=== PATIENT | female | born 1990 | race Caucasian/White ===

== ENCOUNTER 2016-04-29 13:50 | Emergency (ER) | payer OTHER ==
[2016-04-29 14:25] VITALS: BP 116/68
--- NOTE | 2016-04-29 14:25 | UC ---
General HPI - HPI Summary HPI Summary: Patient was injured at work 1 week ago. Is here today for F/u to return to work , dx at time of injury was neck strain. - History of Current Complaint Chief Complaint: UCHeadInjury Stated Complaint: NECK/SHOULDER COMPLAINT (WC) Time Seen by Provider: 04/29/16 13:58 Hx Obtained From: Patient Onset/Duration: Sudden Onset, Lasting Days Timing: Constant Onset Severity: Severe Current Severity: None Pain Intensity: 0 - Allergy/Home Medications Allergies/Adverse Reactions: Allergies Allergy/AdvReac Type Severity Reaction Status Date / Time Hydromorphone [From Dilaudid] Allergy Severe facial Verified 04/29/16 14:08 swelling Amoxicillin [From Augmentin] Allergy Rash Verified 04/29/16 14:13 Clavulanic Acid Allergy Rash Verified 04/29/16 14:13 [From Augmentin] PMH/Surg Hx/FS Hx/Imm Hx Previously Healthy: Yes Endocrine History Of: Denies: Diabetes, Thyroid Disease, Hyperthyroidism, Hypothyroidism, Dyslipidemia Cardiovascular History Of: Denies: Cardiac Disorders, Hypertension, Pacemaker/ICD, Myocardial Infarction , Congestive Heart Failure, Atrial Fibrillation, Deep Vein Thrombosis, Bleeding Disorders Respiratory History Of: Denies: COPD, Asthma, Bronchitis, Pneumonia, Pulmonary Embolism GI/ History Of: Denies: Gastroesophageal Reflux, Ulcer, Gastrointestinal Bleed, Gall Bladder Disease, Kidney Stones, Diverticulitis, Renal Disease, Urosepsis Neurological History Of: Denies: TIA, CVA, Dementia, Seizures, Migraine Psychological History Of: Reports: Anxiety - No medications Denies: Depression, Bipolar Disorder, Schizophrenia, Post Traumatic Stress Disorder Cancer History Of: Denies: Lung Cancer, Colorectal Cancer, Breast Cancer, Prostate Cancer, Cervical Cancer Other History Of: Anticoagulant Therapy Negative For: HIV, Hepatitis B, Hepatitis C - Surgical History Surgical History: Yes Surgery Procedure, Year, and Place: tonsillectomy - Family History Known Family History: Negative: Cardiac Disease, Hypertension - Social History Alcohol Use: Occasionally Substance Use Type: None Smoking Status (MU): Never Smoked Tobacco Review of Systems Constitutional: Negative Skin: Negative Eyes: Negative ENT: Negative Respiratory: Negative Cardiovascular: Negative Gastrointestinal: Negative Genitourinary: Negative Motor: Negative Neurovascular: Negative Musculoskeletal: Myalgia Neurological: Negative Psychological: Negative All Other Systems Reviewed And Are Negative: Yes Physical Exam Triage Information Reviewed: Yes Appearance: Well-Appearing, No Pain Distress, Well-Nourished Vital Signs: Initial Vital Signs Temp 99.2 F 04/29/16 13:57 Pulse 92 04/29/16 13:57 Resp 14 04/29/16 13:57 BP 116/68 04/29/16 13:57 Pulse Ox 97 04/29/16 13:57 Vital Signs Reviewed: Yes Eye Exam: Normal Eyes: Positive: Conjunctiva Clear ENT Exam: Normal ENT: Positive: Normal ENT inspection, Hearing grossly normal, Pharynx normal, TMs normal Dental Exam: Normal Neck exam: Normal Neck: Positive: Supple, Nontender, No Lymphadenopathy Respiratory Exam: Normal Respiratory: Positive: Chest non-tender, Lungs clear, Normal breath sounds Cardiovascular Exam: Normal Cardiovascular: Positive: RRR, No Murmur, Pulses Normal Abdominal Exam: Normal Abdomen Description: Positive: Nontender, No Organomegaly, Soft Bowel Sounds: Positive: Present Musculoskeletal Exam: Normal Musculoskeletal: Positive: Strength Intact, ROM Intact, No Edema, Other: - palpable tendernessover right scalenes Neurological Exam: Normal Neurological: Positive: Alert, Muscle Tone Normal Psychological Exam: Normal Skin Exam: Normal Course/Dx - Course Course Of Treatment: hx obtained exam performed, cleared to return to work next week. - Differential Dx - Multi-Symptom Provider Diagnoses: muscle strain follow up Discharge - Discharge Plan Condition: Stable Disposition: HOME Patient Education Materials: Muscle Strain (ED) Additional Instructions: you are free to return to work without restrictions on 05/04/16.
== END 2016-04-29 14:37 | disposition home or self-care (01) ==
LOC: UCCORT 13:50
DX: S16.1XXD Strain of muscle, fascia and tendon at neck level, subsequent encounter (principal); X58.XXXD Exposure to other specified factors, subsequent encounter; Z88.1 Allergy status to other antibiotic agents; Z88.5 Allergy status to narcotic agent
CPT/HCPCS: 99211; G0463

== ENCOUNTER 2016-12-06 07:01 | Emergency (ER) | payer BC ==
[2016-12-06 07:21] VITALS: BP 121/87
--- NOTE | 2016-12-06 07:21 | UC ---
Eye Complaint HPI - HPI Summary HPI Summary: right eye burning and itching x 1 days + swelling, clear discharge, no change in vision , no fb sensation no cold sx. - History of Current Complaint Chief Complaint: UCEye Stated Complaint: RIGHT EYE COMPLAINT Time Seen by Provider: 12/06/16 07:12 Hx Obtained From: Patient Hx Last Menstrual Period: 11/08/16 ?: No Onset/Duration: Gradual Onset, Lasting Days - 1, Still Present Timing: Constant Severity Initially: Moderate Severity Currently: Moderate Location of Injury: Conjunctiva Aggravating Factor(s): Nothing Alleviating Factor(s): Nothing Associated Signs And Symptoms: Positive: Drainage (Clear), Swelling. Negative: Photophobia, Drainage (Purulent), Vision Impairment Bilateral, Vision Impairment Right, Vision Impairment Left, Fever - Allergies/Home Medications Allergies/Adverse Reactions: Allergies Allergy/AdvReac Type Severity Reaction Status Date / Time Hydromorphone [From Dilaudid] Allergy Severe facial Verified 12/06/16 07:11 swelling Amoxicillin [From Augmentin] Allergy Rash Verified 12/06/16 07:11 Clavulanic Acid Allergy Rash Verified 12/06/16 07:11 [From Augmentin] Home Medications: Home Medications Nuvaring 1 unit VAGINAL SEE INSTRUCTIONS 12/06/16 [History Confirmed 12/06/16] busPIRone TAB* [Buspar TAB*] 10 mg PO BID 12/06/16 [History Confirmed 12/06/16] PMH/Surg Hx/FS Hx/Imm Hx Previously Healthy: Yes Other History Of: Anticoagulant Therapy Negative For: HIV, Hepatitis B, Hepatitis C - Surgical History Surgical History: Yes Surgery Procedure, Year, and Place: tonsillectomy - Family History Known Family History: Negative: Cardiac Disease, Hypertension - Social History Alcohol Use: Occasionally Substance Use Type: None Smoking Status (MU): Never Smoked Tobacco Review of Systems Constitutional: Negative Skin: Negative Eyes: Eye Redness ENT: Negative Respiratory: Negative Cardiovascular: Negative Gastrointestinal: Negative Is Patient Immunocompromised?: No All Other Systems Reviewed And Are Negative: Yes Physical Exam Triage Information Reviewed: Yes Appearance: Well-Appearing, No Pain Distress, Well-Nourished Vital Signs: Initial Vital Signs Temp 98.5 F 12/06/16 07:06 Pulse 89 12/06/16 07:06 Resp 20 12/06/16 07:06 BP 121/87 12/06/16 07:06 Vital Signs Reviewed: Yes Eye Exam: Normal Eyes: Positive: Conjunctiva Inflamed, Discharge - clear discharge ENT: Positive: Normal ENT inspection, Hearing grossly normal, Pharynx normal. Negative: Nasal congestion, Nasal drainage Neck: Positive: Supple, Nontender, No Lymphadenopathy Respiratory: Positive: Chest non-tender, Lungs clear, Normal breath sounds Cardiovascular: Positive: RRR, No Murmur, Pulses Normal Eye Complaint Course/Dx - Differential Dx/Diagnosis Provider Diagnoses: allergic conjunctivitis Discharge - Discharge Plan Condition: Stable Disposition: HOME Prescriptions: Tobramycin/Dexameth OPTH.SUSP* [Tobradex 0.3-0.1%*] 1 drop BOTH EYES Q4H #1 btl Patient Education Materials: Conjunctivitis (ED) Referrals: Cristina Copeland MD [Primary Care Provider] - If Needed Additional Instructions: allergic conjunctivitis cool compresses, use the steroid eye drops follow up if having eye pain, photophobia , change in vision
== END 2016-12-06 07:29 | disposition home or self-care (01) ==
LOC: UCCORT 07:01
DX: H10.11 Acute atopic conjunctivitis, right eye (principal); Z88.5 Allergy status to narcotic agent; Z88.1 Allergy status to other antibiotic agents
CPT/HCPCS: 99212; G0463

== ENCOUNTER 2017-05-15 07:04 | Emergency (ER) | payer BC ==
[2017-05-15 07:21] VITALS: BP 127/68
--- NOTE | 2017-05-15 07:38 | ED ---
Throat Pain/Nasal Congestion - HPI Summary HPI Summary: 26 yr old with right ear ache for couple of weeks on and off. Sinus pressure, post nasal drip, sore throat and cough. She denies SOB. No fever. She called into work today and needs a work note. - History of Current Complaint Chief Complaint: UCRespiratory Time Seen by Provider: 05/15/17 07:27 - Allergies/Home Medications Allergies/Adverse Reactions: Allergies Allergy/AdvReac Type Severity Reaction Status Date / Time amoxicillin [From Augmentin] Allergy Rash Verified 05/15/17 07:13 clavulanic acid Allergy Rash Verified 05/15/17 07:13 [From Augmentin] hydromorphone [From Dilaudid] Allergy facial Verified 05/15/17 07:14 Home Medications: Home Medications D-Methorphan/PE/Acetaminophen [Vicks Dayquil Cold & Flu 10-5-325 mg/15Ml] 1 liq PO DAILY 05/15/17 [History Confirmed 05/15/17] Dextromethorphn/Acetaminoph/Cp [Vicks Nyquil Cold & Flu N] 1 liq PO BEDTIME PRN 05/15/17 [History Confirmed 05/15/17] PMH/Surg Hx/FS Hx/Imm Hx Endocrine/Hematology History: Reports: Hx Anticoagulant Therapy Denies: Hx Diabetes, Hx Thyroid Disease Cardiovascular History: Denies: Hx Congestive Heart Failure, Hx Deep Vein Thrombosis, Hx Hypertension , Hx Myocardial Infarction, Hx Pacemaker/ICD Respiratory History: Denies: Hx Asthma, Hx Chronic Obstructive Pulmonary Disease (COPD), Hx Lung Cancer, Hx Pneumonia, Hx Pulmonary Embolism GI History: Denies: Hx Gall Bladder Disease, Hx Gastrointestinal Bleed, Hx Ulcer, Hx Urosepsis History: Denies: Hx Kidney Stones, Hx Renal Disease Neurological History: Denies: Hx Dementia, Hx Migraine, Hx Seizures, Hx Transient Ischemic Attacks (TIA) Psychiatric History: Reports: Hx Anxiety - No medications Denies: Hx Depression, Hx Schizophrenia, Hx Bipolar Disorder - Surgical History Surgery Procedure, Year, and Place: tonsillectomy Infectious Disease History: No Infectious Disease History: Denies: Hx Hepatitis, Hx Human Immunodeficiency Virus (HIV), Traveled Outside the [place] in Last 30 Days - Family History Known Family History: Negative: Cardiac Disease, Hypertension - Social History Alcohol Use: Occasionally Substance Use Type: Reports: None Smoking Status (MU): Never Smoked Tobacco Review of Systems Constitutional: Negative Positive: Sore Throat, Ear Ache, Nasal Discharge All Other Systems Reviewed And Are Negative: Yes Physical Exam Triage Information Reviewed: Yes Vital Signs On Initial Exam: Initial Vitals Temp Pulse Resp BP Pulse Ox 98.6 F 99 20 127/68 100 05/15/17 07:17 05/15/17 07:17 05/15/17 07:17 05/15/17 07:17 05/15/17 07:17 Vital Signs Reviewed: Yes Appearance: Positive: Well-Appearing, No Pain Distress Skin: Positive: Warm, Skin Color Reflects Adequate Perfusion Head/Face: Positive: Normal Head/Face Inspection Eyes: Positive: EOMI ENT: Positive: Pharyngeal erythema, Nasal congestion, TM red - right, Sinus tenderness Neck: Positive: Nontender Respiratory/Lung Sounds: Positive: Clear to Auscultation, Breath Sounds Present Cardiovascular: Positive: RRR. Negative: Murmur Abdomen Description: Positive: Nontender Musculoskeletal: Positive: Strength/ROM Intact Neurological: Positive: Sensory/Motor Intact, Alert, Oriented to Person Place, Time, CN Intact II-III Psychiatric: Positive: Normal - [place] Coma Scale Best Eye Response: 4 - Spontaneous Best Motor Response: 6 - Obeys Commands Best Verbal Response: 5 - Oriented Coma Scale Total: 15 Diagnostics - Vital Signs Vital Signs Temp Pulse Resp BP Pulse Ox 05/15/17 07:17 98.6 F 99 20 127/68 100 - Laboratory Lab Statement: Any lab studies that have been ordered have been reviewed, and results considered in the medical decision making process. EENT Course/Dx - Course Course Of Treatment: 26 yr old with OM. Plan DC home on zithromax. Note for work given. - Diagnoses Provider Diagnoses: Otitis media Discharge - Discharge Plan Condition: Good Disposition: HOME Prescriptions: Azithromycin TAB* [Zithromax TAB (Z-DREW) 250 mg #6 tabs] 2 tab PO .TODAY, THEN 1 DAILY #1 drew Patient Education Materials: Ear Infection (ED) Forms: *Work Release Referrals: Jose Nielsen MD [Primary Care Provider] - 2 Days
== END 2017-05-15 07:38 | disposition home or self-care (01) ==
LOC: UCCORT 07:04
DX: H66.91 Otitis media, unspecified, right ear (principal); Z88.5 Allergy status to narcotic agent; Z88.0 Allergy status to penicillin; Z88.8 Allergy status to other drugs, medicaments and biological substances
CPT/HCPCS: 99212; G0463

== ENCOUNTER 2017-11-30 08:33 | Day surgery (SDC) | payer BC ==
[~2017-11-30 08:33] MED LIST: Buffered Lidocaine 0.9% SYRIN* 5 ML/SYR SYRINGE INTRADERM ONE; Famotidine IV* 10 MG/ML 2 ML (20 mg) IV ONE
[2017-11-30] MEDS ORDERED: Famotidine IV* 10 MG/ML 2 ML (20 mg) ONE (08:41)
[2017-11-30] MEDS ORDERED: Heparin VIAL(*) 5000 UNITS/ML VIAL (FIVE THOUSAND) ONE (08:41)
[2017-11-30] MEDS ORDERED: Clindamycin 900 MG/D5W BAG(*) 900 MG/50 ML BAG IVPB ONE (08:41)
[2017-11-30] MEDS ORDERED: fentaNYL* 50 MCG/ML 2 ML VIAL (100 MCG VIAL) ONE ×4 (09:30→11:55)
[2017-11-30] MEDS ORDERED: Midazolam* 1 MG/ML 5 ML VIAL (5 MG) ONE (09:30)
[2017-11-30] MEDS ORDERED: Rocuronium* 10 MG/ML VIAL ONE (09:41)
[2017-11-30] MEDS ORDERED: Bupivacaine 0.25% EPI 200,000* 30 ML SDV ONE (10:16)
[2017-11-30] MEDS ORDERED: Scopolamine 1.5 mg* PATCH ONE (10:18)
[2017-11-30] MEDS ORDERED: DiMENhydriNATE IV* 50 MG/ML VIAL IV PUSH PRN (10:19)
[2017-11-30] MEDS ORDERED: Naloxone* 0.4 MG/ML 1 ML VIAL IV PRN (10:19)
[2017-11-30] MEDS ORDERED: Acetaminophen IV 1GM/100ML * 1,000 MG/100 ML VIAL IVPB ONE (10:19)
[2017-11-30] MEDS ORDERED: DiMENhydriNATE IV* 50 MG/ML VIAL ONE (10:57)
[2017-11-30] MEDS ORDERED: Propofol* 10 MG/ML 20 ML BTL IV PUSH ONE (10:57)
[2017-11-30] MEDS ORDERED: Ketorolac INJ* 30 MG/ML 1 ML VIAL ONE (10:57)
[2017-11-30] MEDS ORDERED: Ondansetron INJ* 2 MG/ML VIAL ONE (10:57)
[2017-11-30] MEDS ORDERED: Dexamethasone IV* 4 MG/ML 1 ML (4 MG) ONE (10:57)
[2017-11-30] MEDS ORDERED: Succinylcholine* 20 MG/ML 10 ML VIAL ONE (10:57)
[2017-11-30] MEDS ORDERED: Scopolamine 1.5 mg* PATCH TRANSDERM SCH (11:00)
[2017-11-30] MEDS ORDERED: Acetaminophen IV 1GM/100ML * 100 ML ONE (11:49)
[2017-11-30] MEDS: fentaNYL* 50 MCG/ML 2 ML VIAL (100 MCG VIAL) IV PRN ×4 (12:00→12:41)
[2017-11-30 13:51] VITALS: BP 118/71
--- NOTE | 2017-12-01 00:35 | OP ---
CC: Dr. Jose Nielsen * DATE OF OPERATION: 11/30/17 - SDS DATE OF : 90 SURGEON: Raymundo Okeefe MD RHEUMATOLOGY SPECIALIST: Maribell Oneal NP ANESTHESIOLOGIST: Dr. Valiente ANESTHESIA: General anesthetic, local infiltration. PRE-OP DIAGNOSIS: Cholecystitis. POST-OP DIAGNOSIS: Cholecystitis. OPERATIVE PROCEDURE: Laparoscopic cholecystectomy. DESCRIPTION OF PROCEDURE: The patient was supine on the operating table. After adequate general anesthetic, compression stockings, Jennifer Hugger warmer, and intravenous antibiotics, the abdomen was prepped with antiseptic and draped in a sterile fashion. Local infiltrative anesthesia was administered and then a 5-mm right upper quadrant incision was created and Visiport cannula was placed under direct vision. Insufflation was carried out with carbon dioxide. Additional cannulae, 12-mm subxiphoid and 5-mm supraumbilical and right anterior axillary line were placed through small stab wounds under direct vision. The gallbladder was tented upward and areolar tissue taken down off the duct and artery, which were readily clipped and divided. The gallbladder was taken off the liver bed with scissor cautery. There is no spillage. Hemostasis was very good at the liver bed. Gallbladder is removed through the subxiphoid port without difficulty. Operative field is reexamined and everything is in good condition. The cannulae removed, pneumoperitoneum was allowed to escape. Incisions were closed with 5-0 Vicryl followed by Steri- Strips. She tolerated the procedure well, was awakened, extubated, and brought to Recovery in good condition. No complications. No drains. Pathologic specimen is gallbladder. Sponge and instrument counts correct. Estimated blood loss less than 30 mL. [id number]/[facility] #: [id number] [facility]
== END 2017-11-30 14:42 | disposition home or self-care (01) ==
LOC: OR 08:33
PROVIDERS: ATTEND Surgery
DX: K80.10 Calculus of gallbladder with chronic cholecystitis without obstruction (principal); K21.9 Gastro-esophageal reflux disease without esophagitis; F41.8 Other specified anxiety disorders; E66.9 Obesity, unspecified
CPT/HCPCS: 36415; 81025; 86703; 88304; A9270-GY; J0330; J1100; J1240; J1644; J1885; J2250; J2405; J2704; J3010

== ENCOUNTER 2018-04-11 07:00 | Emergency (ER) | payer BC ==
[2018-04-11 07:27] VITALS: BP 121/54
[2018-04-11 07:49] LABS: Influenza A Molecular NEGATIVE (Negative); Influenza B Molecular NEGATIVE (Negative)
--- NOTE | 2018-04-11 08:09 | UC ---
Throat Pain/Nasal Nicholas HPI - HPI Summary HPI Summary: 27-year-old woman comes in with one week's worth of upper respiratory tract infection symptoms. She's been having a runny nose sore throats for several days saw her primary care doctor had a negative strep started on azithromycin. Since then her rhinorrhea has turned to yellow and green and she's gotten quite a fever bodyaches. [id number] medications to help with the symptoms. No ear pain. No cough or chest congestion or shortness of breath. - History of Current Complaint Chief Complaint: UCRespiratory Stated Complaint: ST Time Seen by Provider: 04/11/18 07:30 Hx Last Menstrual Period: 03/13/18 Pain Intensity: 4 - Allergies/Home Medications Allergies/Adverse Reactions: Allergies Allergy/AdvReac Type Severity Reaction Status Date / Time amoxicillin [From Augmentin] Allergy Rash Verified 04/11/18 07:19 clavulanic acid Allergy Rash Verified 04/11/18 07:19 [From Augmentin] hydromorphone [From Dilaudid] Allergy facial Verified 04/11/18 07:19 nickel Allergy Rash Verified 04/11/18 07:19 Home Medications: Home Medications Azithromycin TAB* [Zithromax TAB (Z-DREW) 250 mg #6 tabs] 250 mg PO DAILY [History Confirmed 04/11/18] Ibuprofen TAB* [Advil TAB*] 600 mg PO Q6H PRN 04/11/18 [History Confirmed ] PMH/Surg Hx/FS Hx/Imm Hx Previously Healthy: Yes Other History Of: Anticoagulant Therapy Negative For: HIV, Hepatitis B, Hepatitis C - Surgical History Surgical History: Yes Surgery Procedure, Year, and Place: tonsillectomy-AGE 2. CHOLYCYSTECTOMY NOV 2017 - Family History Known Family History: Negative: Cardiac Disease, Hypertension - Social History Alcohol Use: Weekly Alcohol Amount: 1-2 GLASSES OF WINE WEEKLY Substance Use Type: None Smoking Status (MU): Never Smoked Tobacco Have You Smoked in the Last Year: No Review of Systems All Other Systems Reviewed And Are Negative: Yes Constitutional: Positive: Fever, Chills Skin: Positive: Negative Eyes: Positive: Negative ENT: Positive: Sore Throat, Nasal Discharge, Sinus Congestion Respiratory: Positive: Negative Cardiovascular: Positive: Negative Gastrointestinal: Positive: Negative Motor: Positive: Negative Neurovascular: Positive: Negative Musculoskeletal: Positive: Myalgia Neurological: Positive: Headache Psychological: Positive: Negative Is Patient Immunocompromised?: No Physical Exam Triage Information Reviewed: Yes Appearance: No Pain Distress, Well-Nourished, Ill-Appearing - MILD Vital Signs: Initial Vital Signs Temp 97.8 F 04/11/18 07:21 Pulse 93 04/11/18 07:21 Resp 17 04/11/18 07:21 BP 121/54 04/11/18 07:21 Pulse Ox 97 04/11/18 07:21 Vital Signs Reviewed: Yes Eye Exam: Normal Eyes: Positive: Conjunctiva Clear ENT: Positive: Pharyngeal erythema, Nasal congestion, Nasal drainage, TMs normal Neck exam: Normal Neck: Positive: Supple Respiratory: Positive: Lungs clear, Normal breath sounds, No respiratory distress Cardiovascular: Positive: RRR Musculoskeletal Exam: Normal Musculoskeletal: Positive: Strength Intact, ROM Intact Neurological Exam: Normal Neurological: Positive: Alert, Muscle Tone Normal Psychological Exam: Normal Psychological: Positive: Age Appropriate Behavior Skin Exam: Normal Throat Pain/Nasal Course/Dx - Course Course Of Treatment: DISCUSSED VIRAL VERSES BACTERIAL INFECTION AND THE ROLE OF ANTIBIOTICS. THE PATIENT WISHES TO BE ON ANTIBIOTIC AT THIS TIME. - Differential Dx/Diagnosis Provider Diagnosis: Sinusitis Discharge - Sign-Out/Discharge Documenting (check all that apply): Patient Departure All imaging exams completed and their final reports reviewed: No Studies - Discharge Plan Condition: Stable Disposition: HOME Prescriptions: DOXYcycline CAP(*) [DOXYcycline 100MG CAP(*)] 100 mg PO BID #20 cap Patient Education Materials: Sinusitis (ED) Forms: *Work Release Referrals: Jose Nielsen MD [Primary Care Provider] - Additional Instructions: FOLLOW UP WITH YOUR DOCTOR IF NOT COMPLETELY IMPROVED. GET RECHECKED FOR ANY WORSENING OF YOUR CONDITION OR QUESTIONS OR CONCERNS. - Billing Disposition and Condition Condition: STABLE Disposition: Home
== END 2018-04-11 08:16 | disposition home or self-care (01) ==
LOC: UCCORT 07:00
DX: J32.9 Chronic sinusitis, unspecified (principal); J02.9 Acute pharyngitis, unspecified; M79.10 Myalgia, unspecified site; Z91.09 Other allergy status, other than to drugs and biological substances; Z88.0 Allergy status to penicillin; Z88.5 Allergy status to narcotic agent
CPT/HCPCS: 99212; G0463

== ENCOUNTER 2018-06-21 07:01 | Emergency (ER) | payer BC ==
[2018-06-21 07:22] VITALS: BP 125/72
--- NOTE | 2018-06-21 07:27 | UC ---
Eye Complaint HPI - HPI Summary HPI Summary: pt present with right eye lid edema, discomfort since last night. Pt denies trauma. Pt has been under the care of a atm servicer for a skin condition. Has topical cream that is causing burning when applied. Pt applied yesterday, but took right off. no vision changes. no eye pain. Pt states has had this intermittent ongoing rash to face x 1 month. Nofever, chills. Sister with autoimmune SLE Pt has not been tested - has not seen PCP not medications reviewed - History of Current Complaint Chief Complaint: UCEye Stated Complaint: RT EYE CONCERN Time Seen by Provider: 06/21/18 07:26 Hx Obtained From: Patient Hx Last Menstrual Period: June 07 ?: No Onset/Duration: Sudden Onset, Lasting Days Pain Intensity: 0 - Allergies/Home Medications Allergies/Adverse Reactions: Allergies Allergy/AdvReac Type Severity Reaction Status Date / Time amoxicillin [From Augmentin] Allergy Rash Verified 06/21/18 07:22 clavulanic acid Allergy Rash Verified 06/21/18 07:22 [From Augmentin] hydromorphone [From Dilaudid] Allergy facial Verified 06/21/18 07:22 nickel Allergy Rash Verified 06/21/18 07:22 Home Medications: Home Medications Tacrolimus 0.1% OINT (NF) 1 applic TOPICAL DAILY 06/21/18 [History Confirmed ] PMH/Surg Hx/FS Hx/Imm Hx Previously Healthy: Yes - derm rash Other History Of: Anticoagulant Therapy Negative For: HIV, Hepatitis B, Hepatitis C - Surgical History Surgical History: Yes Surgery Procedure, Year, and Place: tonsillectomy-AGE 2. CHOLYCYSTECTOMY NOV 2017 - Family History Known Family History: Positive: Non-Contributory Negative: Cardiac Disease, Hypertension - Social History Occupation: Employed Full-time Lives: With Family Alcohol Use: Occasionally Alcohol Amount: 1-2 GLASSES OF WINE WEEKLY Substance Use Type: None Smoking Status (MU): Never Smoked Tobacco Have You Smoked in the Last Year: No Review of Systems All Other Systems Reviewed And Are Negative: Yes Constitutional: Positive: Negative Skin: Positive: Other - right eyelid edema Eyes: Negative: Blurred Vision, Diplopia, Drainage, Eye Redness, Photophobia ENT: Positive: Negative Respiratory: Positive: Negative Cardiovascular: Positive: Negative Gastrointestinal: Positive: Negative Genitourinary: Positive: Negative Physical Exam - Summary Physical Exam Summary: Vital Signs Reviewed: Yes A+Ox3, no distress Eyes: Conjunctiva Clear, PARTH. EOM intact and full no photophobia Pt with edema isolated right upper eyelid. no erythema, mild painful with palp. No fluctuance. no wounds ENT: Hearing grossly normal TM x 2 clear, mmoist, uvula midline, no exudate, no erythema Neck: Positive: Supple Respiratory: Positive: No respiratory distress, No accessory muscle use + CTA throughout no w/r Cardiovascular: RRR nl s1, s2 no m/r CBT <2 sec abd soft + BS nt/nd no guarding, no distension Musculoskeletal Exam: AGUILAR x 4 without difficulty Strength Intact, ROM Intact Neurological: Positive: Alert, + sensation throughout Psychological: Positive: Normal Response To Family Skin: Positive: no rash, no ecchymosis Triage Information Reviewed: Yes Vital Signs: Initial Vital Signs Temp 97.8 F 06/21/18 07:11 Pulse 73 06/21/18 07:11 Resp 18 06/21/18 07:11 BP 125/72 06/21/18 07:11 Pulse Ox 99 06/21/18 07:11 Eye Complaint Course/Dx - Course Course Of Treatment: Pt with nontraumatic edema right upper eyelid since last night mild TTP pt under care of dermatologsti for fcial rash. sister with SLE VSS pt without know MRSA - works in a MD office exam right eyelid edema - no erthema, mild tenderness. no eye pain, photophobia I had a long discussion wiht pt - could be edema from iritation related to rash , itching could be early cellulitis after discussion will start abx warm soaks pt will d/w derm regarding lab work for other conditions will f/u with pcp return precautions - Differential Dx/Diagnosis Provider Diagnosis: Edema of right eyelid Discharge - Sign-Out/Discharge Documenting (check all that apply): Patient Departure All imaging exams completed and their final reports reviewed: No Studies - Discharge Plan Condition: Stable Disposition: HOME Prescriptions: DOXYcycline CAP(*) [DOXYcycline 100MG CAP(*)] 100 mg PO BID #14 cap Fluconazole [Diflucan 150 MG (NF)] 150 mg PO ONCE PRN #1 tab PRN Reason: vaginal yeast infection Patient Education Materials: Periorbital Cellulitis in Adults (ED) Forms: *Work Release Referrals: Jose Nielsen MD [Primary Care Provider] - Additional Instructions: - Apply warm, wet soaks to your eyelid 10 minutes at a time, 2-3 times a day - Take antibiotics as prescribed until gone - Okay to take tylenol or ibuprofen for pain or fever - As discussed, you take a course of antibiotics in case this is early skin infection. - you have been given a prescription for treatment of vaginal yeast infection if you develop from the antibiotics -contact your doctor to schedule a follow-up appointment. It is also recommended you further discuss with your atm servicer at the appointment tomorrow - additional potential diagnoses and consideration of blood work for further testing If you develop swelling in your mouth or have difficulty breathing it is recommended you seek treatment in the emergency department - Billing Disposition and Condition Condition: STABLE Disposition: Home
[2018-06-21] MEDS ORDERED: Fluorescein Sodium TOPICAL* 1 MG TEST STRIP OPHTHALMIC ONE (07:40)
== END 2018-06-21 08:05 | disposition home or self-care (01) ==
LOC: UCCORT 07:01
DX: H02.841 Edema of right upper eyelid (principal); R21 Rash and other nonspecific skin eruption; Z88.0 Allergy status to penicillin; Z88.5 Allergy status to narcotic agent; Z91.09 Other allergy status, other than to drugs and biological substances; Z79.899 Other long term (current) drug therapy
CPT/HCPCS: 99212; A9270-GY; G0463

== ENCOUNTER 2019-04-17 16:42 | Emergency (ER) | payer OTHER ==
[2019-04-17 16:50] VITALS: BP 117/84
--- NOTE | 2019-04-17 17:10 | UC ---
Dizzy HPI HPI Summary: 28 yo with a hx of vertigo, with onset of headache and vertigo yesterday. Headache has resolved, but this afternoon she developed possible nystagmus, malaise, nausea. She has not vomited. No diplopia. No recent illness or trauma. She has never had treatment for vertigo, either medications or PT - History Of Current Complaint Chief Complaint: UCGeneralIllness Stated Complaint: VERTIGO,WINSLOW x2DAYS Time Seen by Provider: 04/17/19 16:59 Hx Obtained From: Patient Hx Last Menstrual Period: 04/10/19 Onset/Duration: Sudden Onset - this afternoon, after improvement from yesterday , Lasting Hours Timing: Hours Severity Initially: Mild Severity Currently: Moderate Pain Intensity: 0 Character: Room Spinning, Dizzy Aggravating Factor(s): Position Change, Change In Head Position Alleviating Factor(s): Rest, Closing Eyes, Turning Head Associated Signs And Symptoms: Positive: Nausea, Unsteady Gait, Decreased Oral Intake. Negative: Vomiting, Diaphoresis, Chest Pain, SOB, Visual Changes, Change In Medication, Change In Diet - Risk Factors Cardiac Risk Factors: Negative CVA Risk Factor: Negative - Allergies/Home Medications Allergies/Adverse Reactions: Allergies Allergy/AdvReac Type Severity Reaction Status Date / Time amoxicillin [From Augmentin] Allergy Rash Verified 04/17/19 16:50 clavulanic acid Allergy Rash Verified 04/17/19 16:50 [From Augmentin] hydromorphone [From Dilaudid] Allergy facial Verified 04/17/19 16:50 nickel Allergy Rash Verified 04/17/19 16:50 Home Medications: Home Medications Meclizine HCl [Motion Sickness Relief] 25 mg PO TID PRN #30 tab 04/17/19 [Rx] Selenomethionine [Selenium] 200 mcg PO DAILY 04/17/19 [History Confirmed ] metFORMIN* [Glucophage 500 MG TAB *] 500 mg PO DAILY 04/17/19 [History Confirmed 04/17/19] PMH/Surg Hx/FS Hx/Imm Hx Endocrine History: Other - metabolic syndrome; assessed by Dr. Rodriges due to abnormal glucose metabolism and elevated T3 in December 2018 Other History Of: Anticoagulant Therapy Negative For: HIV, Hepatitis B, Hepatitis C - Surgical History Surgical History: Yes Surgery Procedure, Year, and Place: tonsillectomy-AGE 2. CHOLYCYSTECTOMY NOV 2017 - Family History Known Family History: Positive: Non-Contributory Negative: Cardiac Disease, Hypertension - Social History Occupation: Employed Full-time Lives: With Family Alcohol Use: Occasionally Alcohol Amount: 1-2 GLASSES OF WINE WEEKLY Substance Use Type: None Smoking Status (MU): Never Smoked Tobacco Have You Smoked in the Last Year: No Review of Systems All Other Systems Reviewed And Are Negative: Yes Constitutional: Positive: Fatigue Skin: Positive: Negative Eyes: Positive: Negative ENT: Positive: Negative Respiratory: Positive: Negative Cardiovascular: Positive: Negative Gastrointestinal: Positive: Negative Genitourinary: Positive: Negative Motor: Positive: Negative Neurovascular: Positive: Negative Musculoskeletal: Positive: Negative Neurological/Mental Status: Positive: Headache - almita resolved, Other - vertigo Psychological: Positive: Negative Is Patient Immunocompromised?: No Physical Exam Triage Information Reviewed: Yes Appearance: Well-Appearing, No Pain Distress Vital Signs: Initial Vital Signs Temp 97.3 F 04/17/19 16:47 Pulse 88 04/17/19 16:47 Resp 20 04/17/19 16:47 BP 117/84 04/17/19 16:47 Pulse Ox 99 04/17/19 16:47 Eye Exam: Other - KILEY, normal eom without nystagmus. Eyes: Positive: Conjunctiva Clear ENT: Positive: Normal ENT inspection Neck: Positive: Supple, Nontender Respiratory: Positive: Lungs clear, Normal breath sounds Cardiovascular: Positive: RRR, No Murmur Musculoskeletal Exam: Normal Neurological Exam: Other - CNII-XII normal. Gait slow and mildly wide based. Negative Romberg's. No past pointing with finger to nose touching. No pronator drift. Neurological: Positive: Alert, Muscle Tone Normal Psychological Exam: Normal Skin Exam: Other - palms are sweaty. Dizzy Course/Dx - Course Course Of Treatment: ondansetron given with relief of nausea. will try meclizine and rest at home. - Differential Dx/Diagnosis Differential Diagnosis/HQI/PQRI: Meniere's Disease, Other - vertigo Provider Diagnosis: Vertigo Discharge ED - Sign-Out/Discharge Documenting (check all that apply): Patient Departure All imaging exams completed and their final reports reviewed: No Studies - Discharge Plan Condition: Stable Disposition: HOME Prescriptions: Meclizine HCl [Motion Sickness Relief] 25 mg PO TID PRN #30 tab PRN Reason: Vertigo Patient Education Materials: Benign Paroxysmal Positional Vertigo (ED) Forms: *Work Release Referrals: Jose Nielsen MD [Primary Care Provider] - Additional Instructions: Rest at home. You can use additional meclizine 25mg up to three times daily for vertigo. Follow up with Dr. Nielsen if you have persistent symptoms to consider additional therapies. You were given ondansetron 8mg once here for treatment of nausea. You can take a dose of meclizine at 8:30 this evening. - Billing Disposition and Condition Condition: STABLE Disposition: Home
[2019-04-17] MEDS ORDERED: Ondansetron ODT TAB* 4 MG PO ONE (17:14)
== END 2019-04-17 18:15 | disposition home or self-care (01) ==
LOC: UCCORT 16:42
DX: R42 Dizziness and giddiness (principal); Z88.0 Allergy status to penicillin; Z91.09 Other allergy status, other than to drugs and biological substances; Z88.5 Allergy status to narcotic agent
CPT/HCPCS: 99212; A9270-GY; G0463

== ENCOUNTER 2020-04-17 10:51 | Inpatient (IN) ==
[2020-04-17] MEDS ORDERED: Buffered Lidocaine 1% SYRIN 1 ml INTRADERM ONE (11:43)
[2020-04-17] MEDS ORDERED: Oxytocin in LR 20 UNITS/1,000 ML BAG IVPB SCH (12:00)
[2020-04-17] MEDS: Lactated Ringers 1000 ml BAG 1,000 ML IV SCH ×2 (12:17→20:47)
[2020-04-17 12:19] LABS: ABS Basophils 0.1 10^3/ul (0-0.2); ABS Eosinophils 0.1 10^3/ul (0-0.6); ABS Lymphocytes 2.1 10^3/ul (1.0-4.8); ABS Monocytes 0.7 10^3/ul (0-0.8); ABS Neutrophils 8.3 10^3/ul (1.5-7.7); Eosinophil % 1.1 %; Hematocrit 38 % (35-47); Hemoglobin 12.7 g/dL (12.0-16.0); Lymphocyte % 18.4 %; Mean Corpuscular HGB Conc 33 g/dL (31-36); Mean Corpuscular Hemoglobin 28 pg (27-31); Mean Corpuscular Volume 84 fL (80-97); Mean Platelet Volume 8.1 fL (7.4-10.4); Platelet Count 318 10^3/uL (150-450); Red Blood Count 4.54 10^6 /uL (3.70-4.87); Red Cell Distribution Width 16 % (10-15); White Blood Count 11.4 10^3/uL (3.5-10.8)
[2020-04-17 12:58] LABS: Urine Benzodiazepine Screen None Detected (None Detect); Urine Cannabinoids Screen None Detected (None Detect); Urine Opiates Screen None Detected (None Detect)
[2020-04-17] MEDS ORDERED: OBEPIDURAL 250 ML EPIDURAL ONE (15:09)
[2020-04-17] MEDS ORDERED: Bupivacaine 0.25% SDV PF 10 ML VIAL INJ ONE ×2 (15:26→23:44)
[2020-04-17] MEDS ORDERED: Phenylephrine 40 mcg/mL 10mL (400mcg) SYRINGE IV PUSH PRN ×2 (16:12)
[2020-04-17] MEDS ORDERED: EPHEDrine (Pressors) 50 MG/ML VIAL IV PUSH PRN ×2 (16:12)
[2020-04-17] MEDS ORDERED: Lactated Ringers 1000 ml BAG 1,000 ML IV ONE (16:12)
[2020-04-17] MEDS ORDERED: Sodium Citrate/Citric Acid LIQ 15 ML UDC PO PRN (16:12)
[2020-04-17] MEDS ORDERED: OBEPIDURAL 250 ML EPIDURAL SCH (17:00)
[2020-04-17] MEDS ORDERED: Lactated Ringers 1000 ml BAG 1,000 ML IV SCH (17:00)
[2020-04-17] MEDS ORDERED: fentaNYL 100 mcg/2 ml 50 MCG/ML VIAL ONE (23:45)
[2020-04-18] MEDS ORDERED: Clindamycin 900 MG/D5W BAG 900 MG/50 ML BAG IVPB ONE ×2 (00:18→00:25)
[2020-04-18] MEDS ORDERED: Bupivacaine 0.5% SDV PF 30ML VIAL ONE (00:26)
[2020-04-18] MEDS ORDERED: Morphine PF AMP (0.5MG/ML) 5 MG/10 ML AMP ONE (00:28)
[2020-04-18] MEDS ORDERED: NS 0.9% IVPB ONE (01:00)
[2020-04-18] MEDS ORDERED: GENTAMICIN ADULT IVPB ONE (01:00)
[2020-04-18] MEDS ORDERED: Oxytocin 10 UNITS/ML 1 ML VIAL ONE (01:48)
[2020-04-18] MEDS ORDERED: Phenylephrine 40 mcg/mL 10mL (400mcg) SYRINGE ONE (01:48)
[2020-04-18] MEDS ORDERED: Dibucaine 1% OINT 28.35 GM TUBE PR PRN (02:31)
[2020-04-18] MEDS ORDERED: Witch Hazel PAD JAR TOPICAL PRN (02:31)
[2020-04-18] MEDS ORDERED: Glycerin ADULT 2.4 gm SUPP PR PRN (02:31)
[2020-04-18] MEDS ORDERED: Naloxone 0.4 mg VIAL 0.4 mg/ml 1 ml VIAL IV PRN ×2 (02:54)
[2020-04-18] MEDS ORDERED: Ondansetron 4 mg VIAL 2 MG/ML 2 ml VIAL IV PRN (02:54)
[2020-04-18] MEDS ORDERED: HYDROcodone/ACETAMIN 5/325 mg TAB PO PRN (02:54)
[2020-04-18] MEDS ORDERED: DiMENhydriNATE IV 50 mg/ml 1 ml VIAL IV PUSH PRN (02:54)
[2020-04-18] MEDS ORDERED: diPHENhydraMINE IV 50 MG/ML 1 ml VIAL (BENADRYL) IV PRN (02:54)
[2020-04-18] MEDS ORDERED: Lactated Ringers 1000 ml BAG 1,000 ML IV SCH (03:00)
[2020-04-19 06:25] LABS: ABS Basophils 0.1 10^3/ul (0-0.2); ABS Eosinophils 0.2 10^3/ul (0-0.6); ABS Lymphocytes 2.6 10^3/ul (1.0-4.8); ABS Monocytes 0.8 10^3/ul (0-0.8); ABS Neutrophils 9.4 10^3/ul (1.5-7.7); Eosinophil % 1.2 %; Hematocrit 33 % (35-47); Lymphocyte % 19.7 %; Mean Corpuscular HGB Conc 33 g/dL (31-36); Mean Corpuscular Hemoglobin 28 pg (27-31); Mean Corpuscular Volume 85 fL (80-97); Mean Platelet Volume 7.9 fL (7.4-10.4); Platelet Count 284 10^3/uL (150-450); Red Blood Count 3.89 10^6 /uL (3.70-4.87); Red Cell Distribution Width 16 % (10-15); White Blood Count 13.1 10^3/uL (3.5-10.8)
[2020-04-21 07:48] VITALS: BP 100/51
== END 2020-04-21 11:56 | disposition home or self-care (01) | DRG 540 ==
LOC: MCHOBOUT 10:51 → MCHOB 11:35
PROVIDERS: ADMIT Obstetrics & Gynecology; ATTEND Obstetrics & Gynecology

== ENCOUNTER 2022-10-07 01:58 | Inpatient (IN) ==
[2022-10-07] MEDS ORDERED: Buffered Lidocaine 1% SYRIN 1 ml INTRADERM ONE (03:07)
[2022-10-07] MEDS ORDERED: Promethazine INJ(RESTRICTED) 25 MG/ML 1 ml VIAL IV PRN (03:07)
[2022-10-07] MEDS ORDERED: Sodium Citrate/Citric Acid LIQ 15 ML UDC PO ONE (03:07)
[2022-10-07] MEDS ORDERED: Lactated Ringers 1000 ml BAG 1,000 ML IV ONE (03:07)
[2022-10-07] MEDS ORDERED: ceFOXitin 2 GM IVPREMIX 2 GM/50 ML BAG IVPB ONE (03:07)
[2022-10-07 03:21] LABS: ABS Basophils 0.1 10^3/uL (0.0-0.1); ABS Eosinophils 0.1 10^3/uL (0.0-0.5); ABS Lymphocytes 1.8 10^3/uL (1.0-4.8); ABS Monocytes 0.7 10^3/uL (0.0-0.9); ABS Neutrophils 8.5 10^3/uL (1.5-7.6); ABS Nucleated RBC 0.01 10^3/ul; Eosinophil % 1.2 %; Hematocrit 35.1 % (35-45); Hemoglobin 11.8 g/dL (11.5-14.3); Mean Corpuscular Hemoglobin 29.5 pg (27-33); Mean Corpuscular Hgb Conc 33.7 g/dL (31-36); Mean Corpuscular Volume 87.5 fL (80-97); Mean Platelet Volume 7.8 fL (7.5-11.2); Nucleated Red Blood Cells % 0.1 /100 WBC (0.0-0.4); Platelet Count 275 10^3/uL (150-450); Red Blood Count 4.01 10^6/uL (3.63-4.92); Red Cell Distribution Width 15.8 % (12-17); White Blood Count 11.1 10^3/uL (3.8-11.8)
[2022-10-07] MEDS ORDERED: Morphine PF AMP (0.5MG/ML) 5 MG/10 ML AMP ONE (03:22)
[2022-10-07] MEDS ORDERED: Phenylephrine 40 mcg/mL 10mL (400mcg) SYRINGE ONE (03:23)
[2022-10-07] MEDS ORDERED: Ondansetron 4 mg VIAL 2 MG/ML 2 ml VIAL ONE ×2 (03:31→04:24)
[2022-10-07 03:39] LABS: Urine Benzodiazepine Screen None Detected (None Detect); Urine Cannabinoids Screen None Detected (None Detect); Urine Opiates Screen None Detected (None Detect)
[2022-10-07] MEDS ORDERED: Acetaminophen IV 1 GM/100ML 1,000 MG/100 ML BAG IV ONE (03:39)
[2022-10-07] MEDS ORDERED: Lactated Ringers 1000 ml BAG 1,000 ML IV SCH ×2 (04:00→06:00)
[2022-10-07] MEDS ORDERED: fentaNYL 100 mcg/2 ml 50 MCG/ML VIAL ONE (04:34)
[2022-10-07] MEDS ORDERED: Naloxone 0.4 mg VIAL 0.4 mg/ml 1 ml VIAL IV PRN (04:38)
[2022-10-07] MEDS ORDERED: fentaNYL 100 mcg/2 ml 50 MCG/ML VIAL IV PRN (04:38)
[2022-10-07] MEDS ORDERED: Acetaminophen IV 1 GM/100ML 1,000 MG/100 ML BAG IV PRN (04:40)
[2022-10-07] MEDS ORDERED: Naloxone 0.4 mg VIAL 0.4 mg/ml 1 ml VIAL IV PUSH PRN (04:40)
[2022-10-07] MEDS ORDERED: Dibucaine 1% OINT 28.35 GM TUBE PR PRN (05:03)
[2022-10-07] MEDS ORDERED: RHO D Immune Globulin (HUMAN) 300 MCG = 1,500 I.U. INJ IM PRN (05:03)
[2022-10-07] MEDS ORDERED: Witch Hazel PAD JAR TOPICAL PRN (05:03)
[2022-10-07] MEDS ORDERED: Measles, Mumps,Rubella VACC 0.5 ML/VIAL SUBCUT ONE (05:03)
[2022-10-07] MEDS ORDERED: Glycerin ADULT 2.4 gm SUPP PR PRN (05:03)
[2022-10-07] MEDS: Oxytocin in LR 20,000 MILLI.UNIT/1,000 ML BAG IV SCH ×2 (08:03→12:20)
[2022-10-07] MEDS: Ondansetron 4 mg VIAL 2 MG/ML 2 ml VIAL IV PRN ×2 (10:09→15:39)
[2022-10-08 09:10] LABS: ABS Basophils 0.1 10^3/uL (0.0-0.1); ABS Eosinophils 0.2 10^3/uL (0.0-0.5); ABS Lymphocytes 1.4 10^3/uL (1.0-4.8); ABS Monocytes 0.5 10^3/uL (0.0-0.9); ABS Neutrophils 7.8 10^3/uL (1.5-7.6); Eosinophil % 1.7 %; Hematocrit 33.8 % (35-45); Hemoglobin 11.6 g/dL (11.5-14.3); Mean Corpuscular Hgb Conc 34.3 g/dL (31-36); Mean Corpuscular Volume 84.4 fL (80-97); Mean Platelet Volume 7.6 fL (7.5-11.2); Platelet Count 267 10^3/uL (150-450); Red Cell Distribution Width 15.8 % (12-17); White Blood Count 9.9 10^3/uL (3.8-11.8)
[2022-10-10 07:58] VITALS: BP 107/56
== END 2022-10-10 15:02 | disposition home or self-care (01) | DRG 540 ==
LOC: MCHOBOUT 01:58 → MCHOB 02:35
PROVIDERS: ADMIT Obstetrics & Gynecology; ATTEND Obstetrics & Gynecology